=== PATIENT | male | born 1960 | race Two or more races ===

== ENCOUNTER 2018-05-02 10:06 | Emergency (ER) | payer OTHER ==
[~2018-05-02] VITALS: Ht 175.3 cm; Wt 93.0 kg
[~2018-05-02 10:06] MED LIST: COZAAR100 MG; COZAAR100 MG PO; EFFEXOR XR37.5 MG; KETO10TA2 PO; LEVSIN/SL0.125 MG PO; METFORMIN HCL500 MG; ORPH100T PO; WELLBUTRIN SR150 MG
== END 2018-05-02 15:50 | disposition home or self-care (01) ==
LOC: ER 10:06
DX: R35.8 Other polyuria (principal); N41.8 Other inflammatory diseases of prostate

== ENCOUNTER 2018-05-05 10:12 | Emergency (ER) | payer OTHER ==
[~2018-05-05] VITALS: Ht 175.3 cm; Wt 93.0 kg
[2018-05-05] MEDS ORDERED: SEPTRA DS (10:23)
[2018-05-05] MEDS ORDERED: [UNRECOGNIZED DRUG - OTHER] (10:25)
== END 2018-05-05 12:59 | disposition home or self-care (01) ==
LOC: ER 10:12
DX: M25.511 Pain in right shoulder (principal); F06.4 Anxiety disorder due to known physiological condition; R10.13 Epigastric pain

== ENCOUNTER 2018-08-18 06:20 | Emergency (ER) | payer OTHER ==
[~2018-08-18] VITALS: Ht 175.3 cm; Wt 90.7 kg
[~2018-08-18 06:20] MED LIST changes: +SEPTRA DS; +[UNRECOGNIZED DRUG - OTHER]
[2018-08-18] MEDS ORDERED: SYNTHROID50 MCG (06:31)
== END 2018-08-18 13:20 | disposition home or self-care (01) ==
LOC: ER 06:20
DX: K58.9 Irritable bowel syndrome, unspecified (principal)

== ENCOUNTER 2018-08-27 11:05 | Emergency (ER) | payer OTHER ==
[~2018-08-27] VITALS: Ht 175.3 cm; Wt 77.1 kg
[~2018-08-27 11:05] MED LIST changes: +SYNTHROID50 MCG
== END 2018-08-27 12:56 | disposition home or self-care (01) ==
LOC: ER 11:05
DX: R42 Dizziness and giddiness (principal)

== ENCOUNTER 2020-07-08 21:45 | Emergency (ER) | payer OTHER ==
[~2020-07-08] VITALS: Ht 175.3 cm; Wt 95.3 kg
[2020-07-08] MEDS ORDERED: VIAGRA100 MG (22:07)
== END 2020-07-08 23:10 | disposition home or self-care (01) ==
LOC: ER 21:45
DX: S11.82XA Laceration with foreign body of other specified part of neck, initial encounter (principal); T17.220A Food in pharynx causing asphyxiation, initial encounter; X58.XXXA Exposure to other specified factors, initial encounter; Y93.89 Activity, other specified; Y92.89 Other specified places as the place of occurrence of the external cause; Y99.8 Other external cause status

== ENCOUNTER 2021-03-28 04:22 | Emergency (ER) | payer OTHER ==
[~2021-03-28] VITALS: Ht 175.3 cm; Wt 86.6 kg
[~2021-03-28 04:22] MED LIST changes: +VIAGRA100 MG
[2021-03-28] MEDS ORDERED: PEPCID40 MG PO (06:35)
[2021-03-28] MEDS ORDERED: BENADRYL25 MG PO (06:35)
== END 2021-03-28 06:45 | disposition home or self-care (01) ==
LOC: ER 04:22
DX: L29.8 Other pruritus (principal)

== ENCOUNTER 2021-04-19 21:11 | Emergency (ER) | payer OTHER ==
[~2021-04-19] VITALS: Ht 177.8 cm; Wt 90.7 kg
[~2021-04-19 21:11] MED LIST changes: +BENADRYL25 MG PO; +PEPCID40 MG PO
[2021-04-19] MEDS ORDERED: BUSPIRONE HCL7.5 MG (21:34)
[2021-04-19] MEDS ORDERED: NASAL MIST126 ML (21:34)
== END 2021-04-20 00:17 | disposition home or self-care (01) ==
LOC: ER 21:11
DX: R00.2 Palpitations (principal); F06.4 Anxiety disorder due to known physiological condition

== ENCOUNTER 2024-08-18 10:04 | Emergency (ER) | payer OTHER ==
[~2024-08-18] VITALS: Ht 175.3 cm; Wt 88.5 kg
[~2024-08-18 10:04] MED LIST changes: +BUSPIRONE HCL7.5 MG; +NASAL MIST126 ML
[2024-08-18] MEDS ORDERED: TAMS0.4C PO (10:51)
[2024-08-18] MEDS ORDERED: XARELTO20 MG (10:51)
[2024-08-18] MEDS ORDERED: ENALAPRILAT DIHYDRATE 2.5 MG/2 ML VIAL IV ONE (13:30)
[2024-08-18 13:47] LABS: HEMATOCRIT 39.1 % (39.0-48.0); HEMOGLOBIN 13.5 g/dL (13-16.00); MEAN CELL VOLUME 91.8 fL (80.0-100.00); MEAN CORPUSCULAR HEMOGLOBIN 31.8 pg (27.00-32.0); MEAN CORPUSCULAR HGB CONC 34.6 g/dl (32.0-36.0); PLATELET COUNT 207 K/uL (150-450); RED BLOOD COUNT 4.26 M/uL (4.00-6.00); RED CELL DISTRIBUTION WIDTH 13.7 % (11.5-14.5)
[2024-08-18 14:36] LABS: CALCIUM 9.7 mg/dL (8.5-10.1); CREATININE SERUM 0.9 mg/dL (0.70-1.30); GFR 84.69; POTASSIUM 4.31 mEq/L (3.5-5.1)
== END 2024-08-18 15:37 | disposition home or self-care (01) ==
LOC: ER 10:06
PROVIDERS: General Practice
DX: R55 Syncope and collapse (principal); I10 Essential (primary) hypertension; G30.9 Alzheimer's disease, unspecified; F02.80 Dementia in other diseases classified elsewhere, unspecified severity, without behavioral disturbance, psychotic disturbance, mood disturbance, and anxiety; G20.A1 Parkinson's disease without dyskinesia, without mention of fluctuations; Z91.013 Allergy to seafood

== ENCOUNTER → 2024-12-03 08:24 | Outpatient (CLI) | payer OTHER ==
[~2024-12-03 08:24] MED LIST changes: +TAMS0.4C PO; +XARELTO20 MG
== END | disposition home or self-care (01) ==
LOC: LAB 08:24
PROVIDERS: ATTEND Internal Medicine
DX: Z00.00 Encounter for general adult medical examination without abnormal findings (principal)

== ENCOUNTER 2024-12-08 08:07 | Outpatient (CLI) | payer OTHER | END 2024-12-08 08:24 | disposition home or self-care (01) | LOC: TOM 08:07 | PROVIDERS: ATTEND Internal Medicine Gastroenterology | DX: R19.00 Intra-abdominal and pelvic swelling, mass and lump, unspecified site (principal) ==